=== PATIENT | male | born 1940 | race African-American/Black ===

== ENCOUNTER 2017-03-12 19:24 | Inpatient (IN) | payer BC ==
--- NOTE | ~2017-03-12 | HP ---
History And Physical [facility] [id number] [place]. [address] NAME: ABBIE YODER : 38 STATUS : ADM Calli PAT#: [id number] AGE: 77 ADM/REG DATE : 03/12/17 MR#: [id number] REPORT SERV DATE: 03/13/17 DICTATED BY: ANGEL MCNALLY DATE: 03/12/17 REPORT STATUS : Draft TRANSCRIBED BY: MODL DATE: 03/12/17 DATE OF ADMISSION: 03/12/2017 Mr. Abbie Yoder is a 77-year-old male, who enters through the emergency room complaining of two days of increasing lower extremity edema and shortness of breath. CVD PHYSICIAN: New to our group practice having been seen several years ago. HISTORY OF PRESENT ILLNESS: He noted approximately two days ago that he began to develop increasing lower extremity edema and become short of breath. He said he also had chest pain that was kind of continuous and worsen when he got more short of breath. He has had no fever, chills, anginal chest pain, palpitations, syncope, presyncope. No change in bowel habits. PAST MEDICAL HISTORY: 1. Hypertension, longstanding. 2. Renal insufficiency with creatinine 1.2 to 1.3. 3. COPD for which he is on steroid. 4. He has been untreated for diabetes before, but is currently not a diabetic. 5. 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 SOCIAL HISTORY: Lives by himself, got a strong family support. FAMILY HISTORY: Noncontributory. PHYSICAL EXAMINATION: VITAL SIGNS: Blood pressure 185/93. GENERAL: He is alert and cooperative. LUNGS: There were rales in left base with increased respiratory effort. CARDIAC: He has no murmur or rubs, but he does have an S3, S4 gallop. ABDOMEN: Bowel sounds are active. EXTREMITIES: He has 2 to 3+ chronic looking lower extremity edema. LABORATORY EVALUATION: EKG shows ST-segment depression. Troponin is borderline at 0.07. BMP is mildly elevated at 314. Hematocrit is intact at 47. Renal insufficiency is noted with a creatinine 1.2 to 1.3. Potassium is 4.5. ASSESSMENT: This time appears to be volume overloaded. We will admit to telemetry and begin to diurese. He also has significant chronic obstructive pulmonary disease for his hyperglycemia. GG/MODL History And Physical [facility] [address] [place]. [address] NAME: ABBIE YODER : 38 STATUS : ADM Calli PAT#: [id number] AGE: 77 ADM/REG DATE : 03/12/17 MR#: [id number] REPORT SERV DATE: 03/13/17 DICTATED BY: ANGEL MCNALLY DATE: 03/12/17 REPORT STATUS : Draft TRANSCRIBED BY: MODHelen DATE: 03/12/17 Angel Mcnally M.D. / [id number] CC: Isma Smiley M.D.
--- NOTE | ~2017-03-12 | CN ---
Consultation Report [facility] [address] [place]. [address] NAME: ABBIE BAE : 38 STATUS : ADM Calli PAT#: [id number] AGE: 77 ADM/REG DATE : 03/12/17 MR#: [id number] REPORT SERV DATE: 03/13/17 DICTATED BY: ALICE DAN DATE: 03/13/17 REPORT STATUS : Draft TRANSCRIBED BY: MODL DATE: 03/13/17 HOSPITALIST CONSULTATION DATE OF CONSULTATION: 03/13/2017 REASON FOR CONSULTATION: Medical management per Dr. Mcnally. HISTORY OF PRESENT ILLNESS: This is an awake, alert, oriented, very pleasant 77-year-old male who was admitted yesterday late 03/12/[address] Mcnally. He presented to the ER with complaints of shortness of breath and swelling in his bilateral lower extremity for about two weeks. Of note, the patient did have a cardiac cath in 2011 with normal EF per Dr. Carmona for similar complaints. Dr. Mcnally has asked us to follow the patient during the course of stay for his concurrent medical problems. The patient is also complaining of intermittent chest pain indicating pain on bilateral sides of his chest. He is currently short of breath and the dyspnea is worse with exertion but not relieved by any specific measures. He also complains of lower right abdominal pain which is intermittent and self-limited. He reports a history of diabetes for two years that was previously controlled by oral medications, but the patient has been off oral medications and is currently controlling his diabetes with diet and exercise. Blood sugar ranges at home, 90s to 100s, which he checks two to three times per week before breakfast. He does have a history of a CVA which occurred in 2015, and he has residual left-sided weakness. He is independent of all ADLs at home but is dependent upon a rolling walker to help with mobility. PAST MEDICAL HISTORY: Significant for: 1. Type 2 diabetes mellitus. 2. COPD with chronic bronchitis. 3. Hypertension. 4. GERD. 5. Hiatal hernia. 6. CVA with residual left-sided weakness. 7. Chest pain. 8. High cholesterol. 9. Constipation. 10.BPH. PAST SURGICAL HISTORY: 1. Significant for cholecystectomy. 2. Exploratory laparotomy of abdomen, 1995. 3. Cardiac catheterization, 2011. The patient's PCP is Dr. Ryanne Terrazas. He follows with Dr. Lugo, Cardiology, also for persistent hypertension. The patient denies seeing foster care therapist. Consultation Report [facility] [address] [place]. [address] NAME: ABBIE BAE : 38 STATUS : ADM Calli PAT#: [id number] AGE: 77 ADM/REG DATE : 03/12/17 MR#: [id number] REPORT SERV DATE: 03/13/17 DICTATED BY: ALICE DAN DATE: 03/13/17 REPORT STATUS : Draft TRANSCRIBED BY: NOREEN DATE: 03/13/17 SOCIAL HISTORY: The patient lives at home alone and is independent of all ADLs with the assistance for rolling walker. He is visited frequently by brothers, sisters, and sister-in law. The patient is a former smoker having quit smoking cigarettes greater than 50 years ago. He denies alcohol and illicit drug use. FAMILY HISTORY: Reports both mother and father as well as siblings have history of hypertension, diabetes, high cholesterol, and stroke. ALLERGIES: PENICILLIN. HOME MEDICATIONS: 1. Norvasc 5 mg p.o. daily. 2. Aspirin 81 mg p.o. daily. 3. Plavix 75 mg p.o. daily. 4. Proscar 5 mg p.o. daily. 5. Linzess 72 mcg p.o. before breakfast. 6. Singulair 10 mg p.o. at bedtime. 7. Bystolic 10 mg p.o. daily. 8. Prilosec 40 mg p.o. twice daily. 9. Pitavastatin 1 mg p.o. every other day. 10.Sterapred 10 mg one tablet p.o. daily x12 days. This was started on 03/02/2017. 11.Flomax 0.4 mg p.o. daily. REVIEW OF SYSTEMS: A complete 10-point review of systems was negative except as per HPI. PHYSICAL EXAMINATION: VITAL SIGNS: T 97.9, P 100, RR 28, BP 208/103, SpO2 of 95% on room air. GENERAL: Well-appearing male, in no acute distress. NEUROLOGIC: Awake, alert, and oriented x3. PERRL at 4. Residual left-sided weakness from CVA two years ago noted. However, the patient moves all extremities x4 spontaneously and to command without difficulty. HEENT: Normocephalic, atraumatic without lymphadenopathy. NECK: Supple. No JVD. LUNGS: Normal respiratory effort, wheezes in all lobes anterior and posterior. CARDIOVASCULAR: Regular rate and rhythm. S1, S2 auscultated. ABDOMEN: Soft, round, and nontender. Hyperactive bowel sounds in all quadrants. No masses. Surgical scar noted. Right lower abdomen and midline abdomen. EXTREMITIES: No cyanosis. Cap refill within normal limits. +2 pitting edema in bilateral lower extremities from knees to toes. PSYCH: Normal affect. SKIN: Clean, dry, and intact with mucous membranes pink and moist and surgical scars as previously indicated. PERTINENT LABS: Random glucose 232, BUN and creatinine 31 and 1.25, hemoglobin and Consultation Report [facility] [address] [place]. [address] NAME: ABBIE BAE : 38 STATUS : ADM Calli PAT#: [id number] AGE: 77 ADM/REG DATE : 03/12/17 MR#: [id number] REPORT SERV DATE: 03/13/17 DICTATED BY: ALICE DAN DATE: 03/13/17 REPORT STATUS : Draft TRANSCRIBED BY: NOREEN DATE: 03/13/17 hematocrit 15.5 and 47.3. Sodium 140, and potassium 4.5. PERTINENT IMAGING: Chest x-ray, read by radiologist on 03/12/2017, confirms mild bibasilar atelectasis superimposed on chronic interstitial lung changes with a moderate hiatal hernia noted. ASSESSMENT AND PLAN: 1. Chronic obstructive pulmonary disease. This is chronic. We will place the patient on bronchodilator protocol. We will provide O2 p.r.n. to maintain oxygen saturation greater than or equal to 92%. We will encourage outpatient followup with Pulmonology. 2. Type 2 diabetes mellitus. The patient has been off his glipizide for approximately one year controlling his diabetes with diet and exercise. His last hemoglobin A1c is unknown. At this time, we will obtain a hemoglobin A1c with his a.m. labs. We will place him on sliding scale insulin level 2. We will include ADA diet modification to current diet ordered by Dr. Mcnally, and we will monitor patient's lab adjusting his treatment as needed. 3. The patient is complaining of nasal congestion, intermittent onset about two weeks to coincide with the dyspnea. We will start Flonase again. Place him on a bronchodilator protocol and be sure to humidify any oxygen patient needs p.r.n. 4. Dyspnea. This could potentially be related to #1 as well as #3. He is being followed by Cardiology primarily for this complaint. Dr. Mcnally will also follow and treat chronic obstructive pulmonary disease as well as nasal congestion to minimize symptoms. 5. History of cerebrovascular accident with residual left-sided weakness. This is chronic and has been since 2015. The patient is independent in all ADLs as previously stated, but is dependent upon his rolling walker for mobility. We will continue to follow for medical causes of his swelling and bilateral extremities, but we will also ask PT to evaluate and treat to maintain mobility and independence while in hospital. 6. Chest pain. This is acute and is being followed by Cardiology. We will defer to primary team for management of this as well as continue to treat chronic obstructive pulmonary disease, nasal congestion, and dyspnea. 7. Hypertension. This is chronic and elevated blood pressure is noted. We will monitor and follow up. Dr. Mcnally is also aware medications have been provided and given to the patient. We will follow along with primary team for management of this high blood pressure. 8. Gastroesophageal reflux disease. This is chronic. We will continue patient's home medications and provide p.r.n. relief while he is here. 9. Hiatal hernia. This is chronic, for which the patient is being monitored while he is asymptomatic. We will monitor, and we will consider appropriate consult if patient becomes symptomatic during this course of stay. Thank you for this consult. We are pleased to follow this patient with you. This consult was completed through thorough review of [employer], old records, [employer], current chart, and thorough interview with patient and his brother. Consultation Report [facility] [address] [place]. [address] NAME: ABBIE BAE : 38 STATUS : ADM Calli PAT#: [id number] AGE: 77 ADM/REG DATE : 03/12/17 MR#: [id number] REPORT SERV DATE: 03/13/17 DICTATED BY: ALICE DAN DATE: 03/13/17 REPORT STATUS : Draft TRANSCRIBED BY: MODL DATE: 03/13/17 [facility]/NOREEN Alice Dan NP / [id number] CC: Isma Smiley M.D.
--- NOTE | ~2017-03-12 | DS ---
Discharge Summary [facility] [address] [place]. [address] NAME: ABBIE BAE : 38 STATUS : DIS IN PAT#: [id number] AGE: 77 ADM/REG DATE : 03/12/17 MR#: [id number] REPORT SERV DATE: 03/29/17 DICTATED BY: ANGEL MCNALLY DATE: 03/28/17 REPORT STATUS : Draft TRANSCRIBED BY: NOREEN DATE: 03/28/17 Data Collection from hospitalization DISCHARGE DIAGNOSES: 1. Poorly controlled hypertension. 2. Chronic obstructive pulmonary disease with dyspnea. 3. Chronic diastolic dysfunction. 4. Type 2 diabetes mellitus. 5. Microscopic hematuria. 6. Mild renal insufficiency. 7. History of cerebrovascular accident. 8. Gastroesophageal reflux disease. 9. Hiatal hernia. 10.Benign prostatic hypertrophy. 11.Hypercholesterolemia. 12.Former smoker. CONSULTATION: Alice Dan NP. PROCEDURES: None. MEDICATIONS: Norvasc 10 mg daily, Halfprin 81 mg daily, Lipitor 40 mg at bedtime, Plavix 75 mg daily, Proscar 5 mg daily, Lasix 20 mg daily, Levaquin 750 mg daily for 10 days, Linzess 72 mcg before breakfast, Glucophage 500 mg with breakfast and supper, Singulair 10 mg at bedtime, Bystolic 10 mg daily-20 mg daily as instructed, Prilosec 40 mg twice a day, Livalo 1 mg every 48 hours at bedtime, Altace 10 mg daily, Flomax 0.4 mg daily, Allergy Relief 10 mg daily. CONDITION AT DISCHARGE: Stable. DISPOSITION: The patient was discharged home on an 1800-calorie, low-sodium, low- cholesterol, diabetic diet with activities as instructed. He would follow up with me, 04/18/[address] Ryanne Terrazas, 03/26/2017. HOSPITAL COURSE: This is a 77-year-old man, who presented to the emergency room complaining of two days of increasing lower extremity edema and shortness of breath. He also said he had some chest pain that was kind of continuous and worse when he got more short of breath. EKG showed ST-segment depression. Troponin was borderline at 0.07. BNP was mildly elevated. Renal insufficiency was noted with a creatinine of 1.2 to 1.3. The patient appeared to be volume overloaded. He was admitted to the hospital at this time for further evaluation and treatment. Upon admission, he was admitted to telemetry and started on diuresis. The following day, he was seen by Alice Dan regarding medical management. He was currently short of breath and his dyspnea was worse with exertion, but was not relieved by any specific measures. Reports a history of diabetes for two years that had previously been controlled by oral medications, but he had been off his oral medication and was currently controlling his diabetes with diet and exercise. He has a history of CVA, which occurred in 2016 with residual left-sided Discharge Summary [id number] [place]. [address] NAME: ABBIE BAE : 38 STATUS : DIS IN PAT#: [id number] AGE: 77 ADM/REG DATE : 03/12/17 MR#: [id number] REPORT SERV DATE: 03/29/17 DICTATED BY: ANGEL MCNALLY DATE: 03/28/17 REPORT STATUS : Draft TRANSCRIBED BY: NOREEN DATE: 03/28/17 weakness. He does use a rolling walker to help with mobility. Creatinine level was 1.25. Chest x-ray confirms mild bibasilar atelectasis, superimposed on chronic interstitial lung changes with moderate hiatal hernia noted. The patient was placed on bronchodilator protocol. O2 would be provided as needed to maintain oxygen saturations greater than or equal to 92%. The patient had been off glipizide for approximately one year ago. Hemoglobin A1c was going to be checked. He was placed on level 2 sliding scale insulin. He was going to be placed on a diabetic diet. Flonase was started. He was placed on bronchodilator protocol. We would humidify any oxygen that the patient needed as needed. The patient's home medications for gastroesophageal reflux disease were continued. He had less shortness of breath. Echocardiogram was requested. Sliding scale insulin continued. Creatinine level was 1.33. On the , he had been evaluated by Physical Therapy. He said he was feeling better. He was alert and cooperative. He had a normal respiratory effort. Discharge planning was performed. Ramipril was increased. Hemoglobin A1c was 6.7. Acute kidney insufficiency had resolved. He had good glycemic control at this time. On 03/15/2017, he was in a sinus rhythm. He had no chest pain, shortness of breath, or palpitations. He had no new complaints. Discharge instructions were given. His hematuria was felt to be likely secondary to traumatic Renee catheter placement. The Renee was discontinued. Due to his improved and stable condition, he was discharged home with the above-stated instructions. Information collected by: Muna Andrews I submit the above information as my discharge summary. TG/MODL Angel Mcnally M.D. / [id number] CC: Isma Smilye M.D.
[2017-03-12 16:00] LABS: BASOPHILS 0 %; EOSINOPHILS 0.1 %; EOSINOPHILS ABSOLUTE 0.01 10/3/uL (0.0-0.53); IMMATURE GRANULOCYTES 0.9 %; IMMATURE GRANULOCYTES ABSOLUTE 0.09 10/3/uL (0.0-0.11); LYMPHOCYTES 15.1 %; LYMPHOCYTES ABSOLUTE 1.46 10/3/uL (0.67-4.30); MEAN CORPUSCULAR HEMOGLOB 30.8 pg (26.0-34.0); MEAN PLATELET VOLUME 10.3 fL (9.2-13.0); MONOCYTES 5.3 %; MONOCYTES ABSOLUTE 0.51 10/3/uL (0.21-1.20); NEUTROPHILS 78.6 %; NEUTROPHILS ABSOLUTE 7.63 10/3/uL (2.02-8.40); RBC DISTRIBUTION WIDTH 15.1 % (12.0-16.0); RED CELL COUNT 5.03 10/6/uL (4.7-6.1)
[2017-03-12 16:01] LABS: ER CBC TAT 0 Hrs 07 Mins; HEMATOCRIT 47.3 % (40.0-51.0); HEMOGLOBIN 15.5 g/dL (13.6-17.8); MANUAL DIFF NO %; MEAN CORPUS HGB CONC 32.8 g/dL (32.0-36.0); PLATELET COUNT 201 10/3/uL (150-400); WHITE BLOOD CELLS 9.7 10/3/uL (4.5-10.5)
[2017-03-12 16:08] LABS: INTERNATIONAL NORMAL RATI 0.9 UNITS (-); PROTIME (NOT ORD) 11.7 SEC (12.0-14.5)
[2017-03-12 16:09] LABS: PARTIAL THROMBO TIME 31.4 SEC (22.5-37.2)
[2017-03-12 16:14] LABS: CALCIUM, SERUM 8.9 MG/DL (8.5-10.4); CHLORIDE, SERUM 109 MMOL/L (96-112); CO2 (CARBON DIOXIDE) 26 MMOL/L (24-34); SODIUM, SERUM 140 MMOL/L (135-148)
[2017-03-12 16:15] LABS: BUN (BLOOD UREA NITROGEN) 31 MG/DL (6-23); CHEST PAIN PROFILE TAT 0 Hrs 21 Mins; CREATININE 1.25 MG/DL (0.70-1.30); GFR AFRICAN AMERICAN 63 ML/MIN (>=60); GFR NON AFRICAN AMERICAN 54 ML/MIN (>=60); GLUCOSE, SERUM 232 MG/DL (60-99); POTASSIUM, SERUM 4.5 MMOL/L (3.5-5.3); TROPONIN I 0.07 NG/ML (<0.05)
[~2017-03-12 19:24] MED LIST: ASAB PO; BYSTOLIC5 MG PO; GLIPIZIDE; GLUCOTRO10 PO; HYZAAR 50/12.51 TAB PO; NORV10 PO; PRAVACHOL80 MG PO; PRILO PO; PRILOSEC10 MG PO; TRILIPIX45 MG PO; ZESTORETIC PO; ZIAC PO; ZIAC5 PO
[2017-03-12] MEDS ORDERED: LEVAQUIN750 MG PO (19:29)
[2017-03-12] MEDS ORDERED: STERAPDS12 PO (19:30)
[2017-03-12] MEDS ORDERED: FLOMAX4 PO (19:31)
[2017-03-12] MEDS ORDERED: HALF81 PO (19:31)
[2017-03-12] MEDS ORDERED: PRILOSEC40 MG PO (19:31)
[2017-03-12] MEDS ORDERED: SINGULAIR1 PO (19:31)
[2017-03-12] MEDS ORDERED: NORV10 PO (19:31)
[2017-03-12] MEDS ORDERED: PLAVIX PO (19:31)
[2017-03-12] MEDS ORDERED: BYSTOLIC10 MG PO (19:32)
[2017-03-12] MEDS ORDERED: LINZESS72 MCG PO (19:32)
[2017-03-12] MEDS ORDERED: PROSCAR5 PO (19:32)
[2017-03-12] MEDS ORDERED: LIVALO1 MG PO (19:32)
[2017-03-12] MEDS ORDERED: ALLERGY RELIEF PO (19:33)
[2017-03-13 05:12] LABS: BASOPHILS 0.1 %; BASOPHILS ABSOLUTE 0.01 10/3/uL (0.0-0.16); EOSINOPHILS 0.8 %; EOSINOPHILS ABSOLUTE 0.08 10/3/uL (0.0-0.53); HEMATOCRIT 49.7 % (40.0-51.0); HEMOGLOBIN 15.9 g/dL (13.6-17.8); IMMATURE GRANULOCYTES 0.8 %; IMMATURE GRANULOCYTES ABSOLUTE 0.09 10/3/uL (0.0-0.11); LYMPHOCYTES 32.8 %; LYMPHOCYTES ABSOLUTE 3.48 10/3/uL (0.67-4.30); MEAN CORPUSCULAR HEMOGLOB 30.3 pg (26.0-34.0); MEAN CORPUSCULAR VOLUME 94.8 fL (80-100); MEAN PLATELET VOLUME 10.7 fL (9.2-13.0); MONOCYTES 6.3 %; MONOCYTES ABSOLUTE 0.67 10/3/uL (0.21-1.20); NEUTROPHILS 59.2 %; NEUTROPHILS ABSOLUTE 6.27 10/3/uL (2.02-8.40); PLATELET COUNT 208 10/3/uL (150-400); RBC DISTRIBUTION WIDTH 15.1 % (12.0-16.0); RED CELL COUNT 5.24 10/6/uL (4.7-6.1); WHITE BLOOD CELLS 10.6 10/3/uL (4.5-10.5)
[2017-03-13 05:13] LABS: MANUAL DIFF NO %
[2017-03-13 05:17] LABS: INTERNATIONAL NORMAL RATI 0.8 UNITS (-); PROTIME (NOT ORD) 11.1 SEC (12.0-14.5)
[2017-03-13 05:18] LABS: PARTIAL THROMBO TIME 72.8 SEC (22.5-37.2)
[2017-03-13 05:30] LABS: BUN (BLOOD UREA NITROGEN) 30 MG/DL (6-23); CALCIUM, SERUM 9.6 MG/DL (8.5-10.4); CHLORIDE, SERUM 106 MMOL/L (96-112); CHOL/HDL RATIO(NOT ORDER) 2.8 (0-5); CHOLESTEROL 207 MG/DL (< 200); CO2 (CARBON DIOXIDE) 24 MMOL/L (24-34); CREATININE 1.33 MG/DL (0.70-1.30); GFR AFRICAN AMERICAN 59 ML/MIN (>=60); GFR NON AFRICAN AMERICAN 50 ML/MIN (>=60); GLUCOSE, SERUM 203 MG/DL (60-99); HDL CHOLESTEROL 73 MG/DL (> 39); LDL CHOLESTEROL 83 MG/DL (< 130); NON-HDL CHOLESTEROL 134 MG/DL (< 160); SGPT(ALT) 44 U/L (5-65); SODIUM, SERUM 139 MMOL/L (135-148); TRIGLYCERIDE 258 MG/DL (< 150)
[2017-03-13 05:33] LABS: POTASSIUM, SERUM 3.7 MMOL/L (3.5-5.3); TROPONIN I 0.09 NG/ML (<0.05)
[2017-03-14 05:23] LABS: PARTIAL THROMBO TIME 60.9 SEC (22.5-37.2)
[2017-03-14 05:25] LABS: BASOPHILS 0.1 %; BASOPHILS ABSOLUTE 0.01 10/3/uL (0.0-0.16); EOSINOPHILS 0.1 %; EOSINOPHILS ABSOLUTE 0.01 10/3/uL (0.0-0.53); HEMATOCRIT 45.8 % (40.0-51.0); HEMOGLOBIN 14.7 g/dL (13.6-17.8); IMMATURE GRANULOCYTES 0.5 %; IMMATURE GRANULOCYTES ABSOLUTE 0.06 10/3/uL (0.0-0.11); LYMPHOCYTES 11.7 %; LYMPHOCYTES ABSOLUTE 1.52 10/3/uL (0.67-4.30); MANUAL DIFF NO %; MEAN CORPUS HGB CONC 32.1 g/dL (32.0-36.0); MEAN CORPUSCULAR HEMOGLOB 30.2 pg (26.0-34.0); MEAN CORPUSCULAR VOLUME 94.2 fL (80-100); MEAN PLATELET VOLUME 10.5 fL (9.2-13.0); MONOCYTES 4.9 %; MONOCYTES ABSOLUTE 0.63 10/3/uL (0.21-1.20); NEUTROPHILS 82.7 %; NEUTROPHILS ABSOLUTE 10.72 10/3/uL (2.02-8.40); PLATELET COUNT 190 10/3/uL (150-400); RBC DISTRIBUTION WIDTH 15.4 % (12.0-16.0); RED CELL COUNT 4.86 10/6/uL (4.7-6.1)
[2017-03-14 05:30] LABS: CALCIUM, SERUM 9.2 MG/DL (8.5-10.4); CHLORIDE, SERUM 104 MMOL/L (96-112); CO2 (CARBON DIOXIDE) 27 MMOL/L (24-34); CREATININE 1.28 MG/DL (0.70-1.30); GFR AFRICAN AMERICAN 61 ML/MIN (>=60); GFR NON AFRICAN AMERICAN 53 ML/MIN (>=60); GLUCOSE, SERUM 169 MG/DL (60-99); POTASSIUM, SERUM 4.1 MMOL/L (3.5-5.3); SGOT(AST) 27 U/L (5-40); SGPT(ALT) 42 U/L (5-65); SODIUM, SERUM 140 MMOL/L (135-148); TOTAL BILIRUBIN 0.6 MG/DL (0-1.2)
[2017-03-14 05:32] LABS: A/G RATIO 0.8 (0.7-1.9); ALBUMIN 2.8 G/DL (3.5-5.0); ALKALINE PHOSPHATASE 143 U/L (45-117); BUN (BLOOD UREA NITROGEN) 34 MG/DL (6-23); GLOBULIN 3.6 G/DL (2.5-4.1); TOTAL PROTEIN 6.4 G/DL (6.0-8.5)
[2017-03-14 06:35] LABS: ASCORBIC ACID (UR NOT ORDER) 20 (NEG); BILIRUBIN, URINE NEGATIVE (NEG); KETONE, URINE NEGATIVE (NEG); LEUKOCYTE ESTERASE(NOT OR NEG (NEG); WBC (NOT ORDERED) (RFLEX) 47 (0-5)
[2017-03-15 04:50] LABS: BASOPHILS 0.1 %; BASOPHILS ABSOLUTE 0.01 10/3/uL (0.0-0.16); EOSINOPHILS 0.2 %; EOSINOPHILS ABSOLUTE 0.02 10/3/uL (0.0-0.53); HEMATOCRIT 45.6 % (40.0-51.0); HEMOGLOBIN 14.3 g/dL (13.6-17.8); IMMATURE GRANULOCYTES 0.4 %; IMMATURE GRANULOCYTES ABSOLUTE 0.04 10/3/uL (0.0-0.11); LYMPHOCYTES 16.6 %; LYMPHOCYTES ABSOLUTE 1.64 10/3/uL (0.67-4.30); MANUAL DIFF NO %; MEAN CORPUS HGB CONC 31.4 g/dL (32.0-36.0); MEAN CORPUSCULAR VOLUME 95.8 fL (80-100); MEAN PLATELET VOLUME 10.4 fL (9.2-13.0); MONOCYTES 7.1 %; NEUTROPHILS 75.6 %; NEUTROPHILS ABSOLUTE 7.46 10/3/uL (2.02-8.40); PLATELET COUNT 160 10/3/uL (150-400); RBC DISTRIBUTION WIDTH 15.9 % (12.0-16.0); RED CELL COUNT 4.76 10/6/uL (4.7-6.1); WHITE BLOOD CELLS 9.9 10/3/uL (4.5-10.5)
[2017-03-15 06:42] LABS: A/G RATIO 0.8 (0.7-1.9); ALBUMIN 2.9 G/DL (3.5-5.0); ALKALINE PHOSPHATASE 123 U/L (45-117); BUN (BLOOD UREA NITROGEN) 33 MG/DL (6-23); CHLORIDE, SERUM 104 MMOL/L (96-112); CO2 (CARBON DIOXIDE) 27 MMOL/L (24-34); CREATININE 1.13 MG/DL (0.70-1.30); GFR AFRICAN AMERICAN 71 ML/MIN (>=60); GFR NON AFRICAN AMERICAN 61 ML/MIN (>=60); GLOBULIN 3.5 G/DL (2.5-4.1); GLUCOSE, SERUM 139 MG/DL (60-99); POTASSIUM, SERUM 4.2 MMOL/L (3.5-5.3); SGOT(AST) 23 U/L (5-40); SGPT(ALT) 41 U/L (5-65); SODIUM, SERUM 137 MMOL/L (135-148); TOTAL BILIRUBIN 0.5 MG/DL (0-1.2); TOTAL PROTEIN 6.4 G/DL (6.0-8.5)
[2017-03-15] MEDS ORDERED: GLUCPH PO (15:59)
[2017-03-15] MEDS ORDERED: L20 PO (16:00)
[2017-03-15] MEDS ORDERED: ALTACE10 MG PO (16:02)
[2017-03-15] MEDS ORDERED: BYSTOLIC20 MG PO (16:02)
[2017-03-15 16:07] LABS: ASCORBIC ACID (UR NOT ORDER) NEG (NEG); BILIRUBIN, URINE NEGATIVE (NEG); KETONE, URINE NEGATIVE (NEG); LEUKOCYTE ESTERASE(NOT OR TRACE (NEG); WBC (NOT ORDERED) (RFLEX) 31 (0-5)
[2017-03-15] MEDS ORDERED: LIPITOR40 PO (16:11)
== END 2017-03-15 17:42 | disposition home or self-care (01) | DRG 292 ==
LOC: ER 19:24 → 5NO 19:58
PROVIDERS: Emergency Medicine; Hospitalist; Internal Medicine Cardiovascular Disease; Nurse Practitioner Family
DX: I13.0 Hypertensive heart and chronic kidney disease with heart failure and stage 1 through stage 4 chronic kidney disease, or unspecified chronic kidney disease (principal); I69.354 Hemiplegia and hemiparesis following cerebral infarction affecting left non-dominant side; N17.9 Acute kidney failure, unspecified; E11.65 Type 2 diabetes mellitus with hyperglycemia; I50.32 Chronic diastolic (congestive) heart failure; J44.9 Chronic obstructive pulmonary disease, unspecified; K21.9 Gastro-esophageal reflux disease without esophagitis; K44.9 Diaphragmatic hernia without obstruction or gangrene; Z79.51 Long term (current) use of inhaled steroids; Z79.82 Long term (current) use of aspirin; Z79.02 Long term (current) use of antithrombotics/antiplatelets; Z88.0 Allergy status to penicillin; Z79.84 Long term (current) use of oral hypoglycemic drugs; R31.29 Other microscopic hematuria; Z87.891 Personal history of nicotine dependence; E66.9 Obesity, unspecified; Z68.30 Body mass index [BMI] 30.0-30.9, adult; E78.5 Hyperlipidemia, unspecified; N18.2 Chronic kidney disease, stage 2 (mild); Y84.6 Urinary catheterization as the cause of abnormal reaction of the patient, or of later complication, without mention of misadventure at the time of the procedure
CPT/HCPCS: 71020; 80048; 80053; 80061; 81001; 82962; 83036; 83735; 83880; 84460; 84484; 85025; 85610; 85730; 87086; 93005; 94640; 97161-GP; 99291; A9270-GY; C8929; G8978-CI-GP; G8979-CI-GP; G8980-CI-GP; J0360; Q9957